=== PATIENT | male | born 1955 | race Caucasian/White ===

== ENCOUNTER → 2016-12-05 | Outpatient (CLI) | payer MEDICARE ==
[~2016-12-05] MED LIST: ALLEGRA DPS180 MG PO; AMBIEN DPS10 MG PO; AMBIEN DPS5 MG PO; CELEBREX100 MG PO; CEPACOL SORE T1 EACH PO; COLACE-DPS100 MG PO; COMPAZINE10 MG PO; COUMADIN5 MG PO; COUMADIN6 MG PO; DULCOLAX-DPS5 MG PO; DULERA 200/58.8 GM IH; DULERA 200/58.8 GM IN; DUONEB DPS3 ML IH; DURAGESIC1 EAC1 TP; FEOSOL-DPS325 MG PO; FLEXERIL-DPS10 MG PO; FLOMAX DPS0.4 MG PO; LASIX DPS40 MG PO; LASIX20 MG PO; LOVENOX DP60 MG/0.6 SQ; MAG-OX400 MG PO; MICRO-K DPS10 MEQ PO; MIRALAX PACKET17 GM PO; MONTELUKAST SOD10 MG PO; MULTIPLE VITAM1 EACH PO; OXY IR DPS10 MG PO; OXY IR DPS5 MG PO; POLYETHYLENE GL17 GM PO; POTASSIUM99 MG PO; PROSCAR DPS5 MG PO; PROTONIX40 MG PO; PROVENTIL2.5 MG/3 M IH; REGLAN DPS5 MG PO; SENOKOT S1 TAB PO; SPIRIVA18 MCG IH; THERA1 EACH PO; TOPROL XL DPS50 MG PO; TOPROL XL100 MG PO; TYLENOL DPS325 MG PO; ULTRAM DPS50 MG PO; VIBRAMYCIN-DPS100 M2 PO; XANAX DPS0.25 MG PO; ZOFRAN4 MG PO
== END | disposition home or self-care (01) ==
LOC: PTH.S 11:01
DX: Z01.812 Encounter for preprocedural laboratory examination (principal)

== ENCOUNTER 2016-12-20 06:29 | Inpatient (IN) | payer MEDICARE, SELFPAY ==
[~2016-12-20] VITALS: Ht 167.6 cm; Wt 103.0 kg
--- NOTE | ~2016-12-20 | OR ---
ADMIT: 12/20/2016 RM/LOC: 509 [facility] MR#: [id number] [address] [address] JONNATHAN PRADO [address] [place] [address] Operative/Delivery Room Report SEX: M AGE: 61 : 1955 SURGERY DATE: 12/20/2016 SURGEON: Toby Coburn MD ASSISTANTS: 1. James Stahl PA-C. 2. JOHNNY Cho. PREOPERATIVE DIAGNOSIS: Right hip avascular necrosis. POSTOPERATIVE DIAGNOSIS: Right hip avascular necrosis. PROCEDURES: 1. Right anterior total hip arthroplasty. 2. Intra-articular block. ANESTHESIA: Spinal. COMPLICATIONS: None. ESTIMATED BLOOD LOSS: 200 mL. COMPONENTS: 1. A 58-mm Gription [place] cup. 2. 3 acetabular screws. 3. Neutral 36-mm AltrX liner. 4. Hole eliminator. 5. 15-mm standard offset Corail stem. 6. 8.5 x 36 mm ceramic head. DESCRIPTION OF PROCEDURE: The patient was taken to the operating room. The correct hip was identified and marked in the preop holding area. The preoperative leg lengths were documented. The patient received a spinal anesthetic. At that point, the patient had traction boots applied. The patient was placed on the [place] operative table. A perfect fluoroscopic AP pelvis was obtained along with a perfect AP of the operative hip and printed for preoperative templating purposes. At that point, the right hip was prepped and draped in a standard fashion and an anterior approach was performed. An incision was made lateral and inferior to the anterior superior iliac spine extending distally. Dissection was carried through subcutaneous tissue down to the tensor fascia. The fibers of the tensor fascia were identified in oblique fashion. The tensor fascia was then opened up along its muscle fibers. An Allis clamp was placed on the anterior fascial border. The tensor muscle itself was then swept off with blunt dissection and retracted posteriorly. At that point, the rectus was elevated off the anterior hip capsule. The lateral circumflex vessels were identified and cauterized. A Cobra retractor was placed above the superior femoral neck to retract the tensor posteriorly. The rest of the rectus was elevated off the anterior hip capsule and a second retractor was placed around the medial femoral neck. An L-shaped capsulotomy ADMIT: 12/20/2016 RM/LOC: 509 [facility] MR#: [id number] [address] [address] JONNATHAN PRADO [address] [place] [address] Operative/Delivery Room Report SEX: M AGE: 61 : 1955 was performed through the hip capsule down to the intertrochanteric line and extended along the intertrochanteric line to the level of the lesser trochanter. Tag stitches were placed in the medial and lateral border of the hip capsule. We also released the superior hip capsule out of the trochanteric shoulder region. At that point, we placed our Cobra retractors in an intra- articular fashion for improved exposure to complete our capsular releases intra-articularly. A femoral neck cut was then made based on templating using the trochanteric shoulder as a bony landmark. We then externally rotated the hip 20 degrees for improved exposure and removed the femoral head from the acetabulum with no undue difficulty. Once the femoral head was removed, we again completed our capsular release around the inferior femoral neck to the level of lesser trochanter, released the superior capsule off the greater trochanteric shoulder in its entirety. We then placed slight traction on the femur in 20 degrees external rotation and placed a blunt-tip Cobra retractor over the anterior acetabular border. A second blunt Cobra was placed around the posterior acetabular border. All the remaining labrum was excised and an episiotomy performed to the inferior capsule to improve exposure. We cauterized the fovea and removed any remaining tissue in the depth of the acetabulum. We sequentially reamed the acetabulum under direct visualization up to a 57-mm reamer. We elected to use a 58-mm size acetabular component. We put the acetabular component on a curved transport truck driver and placed it within the depths of the acetabulum. At that point we removed all retractors; brought in fluoroscopy; and again obtained a perfect AP of the pelvis followed by a perfect AP of the hip. Under fluoroscopic guidance, we impacted the acetabular component in approximately 45 degrees of inclination and 20 degrees of anteversion. Three acetabular screws were now placed with good purchase and no supplemental screws were required. Any peripheral osteophytes were circumferentially removed around the acetabular component. A hole eliminator was placed in the acetabular component and a neutral 36-mm AltrX liner was impacted within the acetabular component. A partial intra-articular block was performed at this point in time. Once our acetabular preparation was completed, all the acetabular retractors were removed. We then exposed the femur by rotating it into neutral position and taking all traction off the femur. A femoral elevating hook was placed posterior to the trochanteric ridge. The foot was dropped down to 45 degrees and the leg maximally externally rotated no undue tension. We made sure our inferior capsular release was complete and placed a #1 retractor over the tip of the trochanter. Any remaining capsule was released off the tip of the trochanter and the piriformis tendon and a conjoined tendon were also released for exposure. At that point, you could feel the femur give, and we were able to elevate it up and out of the wound. The femur was externally rotated to approximately 120 degrees and the foot dropped to the floor as the leg was adducted. The trochanteric elevating hook was manually pulled in the anterior lateral direction as the elevating bar was raised to support it. At that point, we had excellent femoral exposure. A Daysi retractor was placed over the tip of the trochanter and a femoral neck retractor around the medial calcar region to improve exposure. The proximal femur was opened with a box osteotome and a canal finder was used to identify the femoral canal. The proximal femur was ADMIT: 12/20/2016 RM/LOC: 509 [facility] MR#: [id number] [address] [address] JONNATHAN PRADO [address] [place] [address] Operative/Delivery Room Report SEX: M AGE: 61 : 1955 sequentially broached up to a 15 mm Corail broach. We did overream the distal canal to be sure we did not have a distal femoral fit. At that point, we left the broach in the canal and calcar planed the neck. We then reduced the hip with a standard off-set femoral neck and a 8.5 x 36-mm head. All the retractors and femoral hook were removed. Using manual traction, we were able to reduce the hip into the acetabulum with no undue difficulty. A perfect fluoroscopic AP of the pelvis followed by a perfect AP of the hip was obtained and appropriate leg length and offset were confirmed. We replaced our femoral elevating hook posterior to the trochanter. A bone hook and manual traction were used to dislocate the hip, again externally rotating the femur in its entirety as the foot was dropped to the floor and leg adducted. We removed the trial components, replaced a Daysi retractor, and a femoral neck retractor. The broach was removed and the appropriate real components opened. We then impacted a size 15-mm standard offset Corail stem down the femoral canal with excellent press-fit. We impacted a +5 x 36 mm metal/ceramic head on the trunnion. All retractors were removed, using manual traction the hip was reduced, and again was found to be stable. A final fluoroscopic AP pelvis and AP hip was obtained to confirm appropriate leg length, offset, and component positioning. We then irrigated out the wounds thoroughly and repaired the anterior capsular structures with #5 Ti-Cron. Our intra-articular block was completed including all soft tissues. The tensor fascia was repaired with a running and interrupted 0 Vicryl suture. We closed subQ with 2-0 Vicryl and ran a subcuticular Monocryl stitch. A Prineo hip wound dressing was applied and sterile dressings applied. The patient was taken off the HANA table, transferred to a standard OR bed, and taken to the recovery room in stable condition with no complications. Toby Coburn MD/ efrain JOB #: [id number] CC: Toby Coburn, Attending Physician Doroteo Quintanilla, Family Physician
[2016-12-25] MEDS ORDERED: ALLEGRA DPS180 MG PO (13:58)
[2016-12-25] MEDS ORDERED: LASIX DPS40 MG PO (13:59)
[2016-12-25] MEDS ORDERED: CELEBREX100 MG PO (13:59)
[2016-12-25] MEDS ORDERED: AMBIEN DPS10 MG PO (13:59)
[2016-12-25] MEDS ORDERED: MICRO-K DPS10 MEQ PO (13:59)
[2016-12-25] MEDS ORDERED: COUMADIN6 MG PO (13:59)
[2016-12-25] MEDS ORDERED: POLYETHYLENE GL17 GM PO (14:00)
[2016-12-25] MEDS ORDERED: PROSCAR DPS5 MG PO (14:00)
[2016-12-25] MEDS ORDERED: REGLAN DPS5 MG PO (14:00)
[2016-12-25] MEDS ORDERED: PROTONIX40 MG PO (14:00)
[2016-12-25] MEDS ORDERED: MULTIPLE VITAM1 EACH PO (14:01)
[2016-12-25] MEDS ORDERED: MONTELUKAST SOD10 MG PO (14:01)
[2016-12-25] MEDS ORDERED: SENOKOT S1 TAB PO (14:01)
[2016-12-25] MEDS ORDERED: TOPROL XL DPS50 MG PO (14:01)
[2016-12-25] MEDS ORDERED: TYLENOL DPS325 MG PO (14:02)
[2016-12-25] MEDS ORDERED: ULTRAM DPS50 MG PO (14:02)
[2016-12-25] MEDS ORDERED: DULERA 200/58.8 GM IH (14:02)
[2016-12-25] MEDS ORDERED: SPIRIVA18 MCG IH (14:03)
[2016-12-25] MEDS ORDERED: PROVENTIL2.5 MG/3 M IH ×2 (14:03→14:05)
[2016-12-25] MEDS ORDERED: COMPAZINE10 MG PO (14:04)
[2016-12-25] MEDS ORDERED: CEPACOL SORE T1 EACH PO (14:04)
[2016-12-25] MEDS ORDERED: DULCOLAX-DPS5 MG PO (14:04)
[2016-12-25] MEDS ORDERED: COLACE-DPS100 MG PO (14:04)
[2016-12-25] MEDS ORDERED: OXY IR DPS5 MG PO (14:05)
[2016-12-25] MEDS ORDERED: XANAX DPS0.25 MG PO (14:05)
[2016-12-25] MEDS ORDERED: ZOFRAN4 MG PO (14:05)
[2016-12-25] MEDS ORDERED: LOVENOX DP60 MG/0.6 SQ (14:06)
--- NOTE | 2017-01-09 07:51 | CO ---
ADMIT: 12/20/2016 RM/LOC: [facility] MR#: [id number] [address] [address] JIMMY PRADO [address] [place] [address] Consultation Report SEX: M AGE: 61 : 1955 DATE OF CONSULTATION: 12/07/2016 ATTENDING PHYSICIAN: Toby Coburn CONSULTING PHYSICIAN: Doroteo Quintanilla MD SCHEDULED PROCEDURES: Right total hip arthroplasty with Dr. Zapata for failed conservative management of avascular necrosis of the right femur. HISTORY OF PRESENT ILLNESS: Jimmy is a 61-year-old white male, who is seen for preoperative clearance prior to undergoing scheduled right total hip arthroplasty on December 20. He has a complex medical history and has failed conservative management prior to a scheduled total hip replacement. PAST MEDICAL HISTORY: Multiple surgeries including two right and one left rotator cuff repair, open reduction and internal fixation of a leg fracture, hernia surgery, carpal tunnel surgeries, bilateral thumb tendon transfers, and nose surgery. Illnesses include COPD, atrial fibrillation, benign prostatic hypertrophy, prior colitis, colon polyps, venous insufficiency, and sleep apnea. MEDICATIONS: On admission are listed and include: 1. Nabumetone 750 mg b.i.d., on hold. 2. Coumadin 6 mg daily. 3. Metoprolol Extended Release 100 mg daily. 4. Omeprazole 20 mg daily. 5. Multivitamin. 6. Finasteride 5 mg at bedtime. 7. Lasix 40 mg in the morning. 8. Potassium 10 mEq t.i.d. 9. ProAir two puffs q.i.d. 10.Symbicort 160/4.5, one inhalation b.i.d. 11.Tudorza one inhalation daily. 12.Albuterol nebulizers q.i.d. p.r.n. 13.Ambien CR 12.5 mg at bedtime. 14.Docusate 100 mg daily p.r.n. constipation. 15.P.R.N. Lortab. 16.Fexofenadine 180 mg daily. 17.Montelukast 10 mg daily. 18.Reglan 5 mg before meals and at bedtime. 19.Alprazolam 0.25 mg t.i.d. p.r.n. anxiety. ALLERGIES: NONE. SOCIAL HISTORY: Is that of a 61-year-old white male. He is a prior smoker and has end-stage COPD. He is a biker and drinks alcohol routinely. FAMILY HISTORY: Noncontributory. No family history of anesthesia complications noted. ADMIT: 12/20/2016 RM/LOC: [facility] MR#: [id number] [address] [place], [place] [id number] JIMMY PRADO [address] [place] [address] Consultation Report SEX: M AGE: 61 : 1955 REVIEW OF SYSTEMS: Remarkable for his end-stage COPD, atrial fibrillation, diffuse generalized arthritis including his hands, wrists, neck, back, knees, and hips. Additionally, recently had a recent pelvis fracture. Remainder of review of systems is negative. PHYSICAL EXAMINATION: VITAL SIGNS: Blood pressure currently of 128/84, pulse 96, temperature 97.5. Height 68 inches, weight of 223 pounds with a sat of 95% on room air. GENERAL APPEARANCE: Is that of a 61-year-old male who is alert, oriented, appears older than stated age. HEENT: Pupils are reactive. Extraocular muscles are intact. Membranes are moist. NECK: Without nodes or masses. HEART: Regular with controlled rate. LUNGS: Clear with diminished breath sounds. ABDOMEN: Obese, soft, nontender, benign. and RECTAL: Deferred. EXTREMITIES: Reveal venous insufficiency with 1+ edema. No clubbing or cyanosis. NEUROLOGIC: Exam is grossly normal including light touch, strength, and DTRs. He has advanced arthritis of the right hip with formal range of motion testing not done. LABORATORY DATA: Labs include a sodium of 138, potassium 4.0, BUN of 9, creatinine 0.9 with glucose of 146. White count 6.4, hemoglobin 13.3, platelet count 284,000. Chest x-ray and EKG were done in the last 6 months and not repeated. ASSESSMENT: 1. Avascular necrosis, right hip, with failed conservative therapy. Other problems include: 1. End-stage chronic obstructive pulmonary disease. 2. Atrial fibrillation. 3. Prior colitis. ADMIT: 12/20/2016 RM/LOC: [facility] MR#: [id number] [address] [place], [place] [id number] JIMMY PRADO [address] [place] [address] Consultation Report SEX: M AGE: 61 : 1955 4. Eczema. 5. Ongoing Coumadin therapies. 6. Sleep apnea. 7. Venous insufficiency. PLAN: We will hold his Coumadin 6 days preop. We will use Lovenox 60 mg subcutaneous bridge. We will hold Lovenox the day before surgery and resume Coumadin postop at 6 mg daily. He is okay for operative intervention and anesthesia as indicated. Routine preop instructions were given. We will hold his nabumetone at this time and confirmation of Pulmonary availability in the perioperative period was confirmed through [facility]. Additionally, I recommend he have intrathecal anesthesia, not general, if at all possible. Doroteo Quintanilla MD/ efrain JOB #: [id number] CC: Toby Coburn, Attending Physician Doroteo Quintanilla, Family Physician
[2017-01-10] MEDS ORDERED: FEOSOL-DPS325 MG PO (18:43)
[2017-01-10] MEDS ORDERED: COUMADIN5 MG PO (18:43)
[2017-01-10] MEDS ORDERED: AMBIEN DPS5 MG PO (18:43)
[2017-01-10] MEDS ORDERED: ALLEGRA DPS180 MG PO (18:43)
[2017-01-10] MEDS ORDERED: COLACE-DPS100 MG PO ×2 (18:43→18:47)
[2017-01-10] MEDS ORDERED: PROSCAR DPS5 MG PO (18:44)
[2017-01-10] MEDS ORDERED: REGLAN DPS5 MG PO (18:44)
[2017-01-10] MEDS ORDERED: MIRALAX PACKET17 GM PO (18:44)
[2017-01-10] MEDS ORDERED: SENOKOT S1 TAB PO (18:44)
[2017-01-10] MEDS ORDERED: FLOMAX DPS0.4 MG PO (18:44)
[2017-01-10] MEDS ORDERED: PROTONIX40 MG PO (18:44)
[2017-01-10] MEDS ORDERED: TOPROL XL100 MG PO (18:45)
[2017-01-10] MEDS ORDERED: THERA1 EACH PO (18:45)
[2017-01-10] MEDS ORDERED: VIBRAMYCIN-DPS100 M2 PO (18:45)
[2017-01-10] MEDS ORDERED: DULERA 200/58.8 GM IN (18:45)
[2017-01-10] MEDS ORDERED: MONTELUKAST SOD10 MG PO (18:45)
[2017-01-10] MEDS ORDERED: DUONEB DPS3 ML IH ×2 (18:46→18:49)
[2017-01-10] MEDS ORDERED: SPIRIVA18 MCG IH (18:46)
[2017-01-10] MEDS ORDERED: DURAGESIC1 EAC1 TP (18:47)
[2017-01-10] MEDS ORDERED: ULTRAM DPS50 MG PO (18:48)
[2017-01-10] MEDS ORDERED: DULCOLAX-DPS5 MG PO (18:48)
[2017-01-10] MEDS ORDERED: FLEXERIL-DPS10 MG PO (18:48)
[2017-01-10] MEDS ORDERED: OXY IR DPS10 MG PO (18:48)
[2017-01-10] MEDS ORDERED: XANAX DPS0.25 MG PO (18:49)
[2017-01-10] MEDS ORDERED: PROVENTIL2.5 MG/3 M IH (18:49)
[2017-01-10] MEDS ORDERED: ZOFRAN4 MG PO (18:49)
--- NOTE | 2017-01-10 21:07 | HP ---
ADMIT: 12/20/2016 RM/LOC: [facility] MR#: [id number] [address] [address] JONNATHAN PRADO [address] [place] [address] Pre-OP History and Physical SEX: M AGE: 61 : 1955 DATE OF SERVICE: CHIEF COMPLAINT: Hip pain. HISTORY OF PRESENT ILLNESS: The patient is a 61-year-old male with long- standing history of right hip pain. He had a diagnosis of right hip avascular necrosis. Dr. Zapata attempted to do core decompression, this has failed. He is not involved in a femoral head collapse. He is now being admitted for right total hip arthroplasty. He does have chronic atrial fibrillation. He is on chronic Coumadin therapy. The patient has been previously exposed to bedbugs. They have had their house treated and it has been cleaned. Presently, has no known active infections. PAST MEDICAL HISTORY: Include atrial fibrillation, some COPD, anxiety, depression, hepatitis C. PAST SURGICAL HISTORY: Include knee arthroscopy, hernia repair, rotator cuff repair, core decompression. MEDICATIONS: Include: 1. Xolair. 2. Coumadin. 3. ProAir. 4. Albuterol. 5. Fexofenadine. 6. Symbicort. 7. Metoprolol. 8. Omeprazole. 9. Finasteride. 10.Nabumetone. 11.Lasix. 12.Ambien. 13.Xanax. 14.Singulair. ALLERGIES: NONE. SOCIAL HISTORY: Denies any tobacco or alcohol use. REVIEW OF SYSTEMS: Negative. PHYSICAL EXAM: GENERAL: Moderately obese male. EXTREMITIES: Pain with any motion of his right hip. We can internally rotate to 0, externally rotate to 35, flex to 100 reproduces symptoms. Legs otherwise neurovascularly intact. ADMIT: 12/20/2016 RM/LOC: [facility] MR#: [id number] [address] [address] JONNATHAN PRADO [address] [place] [address] Pre-OP History and Physical SEX: M AGE: 61 : 1955 DIAGNOSTIC DATA: X-rays AP, lateral show a right hip avascular necrosis with the collapse of the femoral head. No other abnormalities. IMPRESSION: 1. Right hip avascular necrosis, stage IV. 2. Chronic Coumadin therapy. 3. History of hepatitis C. PLAN: Talked about different options, failed conservative care. Plan on doing a right anterior total hip arthroplasty. He is aware of the risks, benefits, and options and agreed to proceed. He has been seen and cleared from a medical standpoint. His Coumadin has been held. Toby Coburn MD/ efrain JOB #: [id number] CC: Toby Coburn, Attending Physician Doroteo Quintanilla, Family Physician
--- NOTE | 2017-01-10 21:11 | DS ---
ADMIT: 12/20/2016 RM/LOC: 509 [facility] MR#: [id number] [address] [address] [place] [address] General Discharge Summary SEX: M AGE: 61 : 1955 ADMISSION DATE: 12/20/2016 DISCHARGE DATE: 12/23/2016 REASON FOR ADMISSION: Right total hip arthroplasty due to end-stage right hip avascular necrosis. PREOPERATIVE DIAGNOSIS: Right hip avascular necrosis. POSTOPERATIVE DIAGNOSIS: Right hip avascular necrosis. PROCEDURE PERFORMED: Right anterior total hip arthroplasty. ANESTHETIC: Spinal. COMPLICATIONS: None. BLOOD LOSS: 200 mL. SURGEON: Toby Coburn MD. FLIGHT CONTROLS ENGINEER: James Stahl PA-C and JOHNNY Cho. ACTIVE MEDICAL PROBLEMS: Severe degenerative joint disease of the right hip secondary to avascular necrosis, end-stage COPD, chronic atrial fibrillation, prior colitis, eczema, ongoing Coumadin therapy, sleep apnea, and venous insufficiency. HOSPITAL COURSE: Jimmy was admitted on 12/20/2016 for elective right total hip arthroplasty secondary to severe degenerative joint disease and avascular necrosis of the hip. His total hip arthroplasty completed successfully from a direct anterior approach by Dr. Coburn. There were no intraoperative complications. Postoperatively, he had some pain and soreness. We did use intraoperative generic pain cocktail, did not have great results, but it was adequate to control his pain within a reasonable fashion. Participated well with therapy progressing with his home exercise program and DVT prophylaxis with bridging with Lovenox on to warfarin until his INR was therapeutic. Gradually progressed until day 3 when he was stable and ready for discharge. He did have mild acute surgical blood-loss anemia, hemoglobin dropped to 10.9, but remained hemodynamically stable, did not require transfusion. Postop day 3, he was stable and ready for discharge to longterm facility for rehabilitation. DISCHARGE MEDICATIONS: 1. Jewels 180 mg daily. 2. Ambien 10 mg at bedtime. 3. Celebrex 200 mg b.i.d. 4. Coumadin as directed to maintain therapeutic INR of 2.0 to 3.0. 5. Lasix 40 mg daily. 6. Micro-K 10 mEq daily. ADMIT: 12/20/2016 RM/LOC: 509 [facility] MR#: [id number] [address] [address] [place] [address] General Discharge Summary SEX: M AGE: 61 : 1955 7. MiraLAX p.r.n. 8. Proscar 5 mg daily. 9. Protonix 40 mg daily. 10.Reglan 5 mg p.r.n. 11.Senokot b.i.d. p.r.n. 12.Singulair 10 mg daily. 13.Multivitamin daily. 14.Toprol-XL 100 mg daily. 15.Tylenol 650 mg q.4 p.r.n. 16.Ultram 50 mg 1 to 2 q.6 p.r.n. 17.Dulera 200/5, 0.8 b.i.d. 18.Proventil HFA q.i.d. p.r.n. 19.Spiriva 18 mcg daily. 20.Cepacol p.r.n. 21.Colace 100 mg b.i.d. p.r.n. 22.Compazine 10 mg q.6 p.r.n. 23.Dulcolax p.r.n. 24.Flexeril 10 mg t.i.d. p.r.n. 25.OxyIR 5 mg 1 to 2 q.4 p.r.n. 26.Xanax 0.25 mg t.i.d. p.r.n. 27.Zofran 4 mg q.4 p.r.n. 28.Lovenox 60 mg subcu daily until therapeutic with his INR. DISCHARGE INSTRUCTIONS: Jimmy will undergo therapy per anterior total hip arthroplasty protocol, follow in the orthopedic office in 2 weeks for wound check, 6 weeks with x-rays. Follow up with primary care as directed. James Stahl PA-C / Toby Coburn MD / efrain JOB #: [id number] CC: Toby Coburn MD, Attending Physician Doroteo Quintanilla MD, Family Physician
[2017-01-23] MEDS ORDERED: POTASSIUM99 MG PO (06:12)
[2017-01-23] MEDS ORDERED: MAG-OX400 MG PO (06:12)
[2017-01-23] MEDS ORDERED: TYLENOL DPS325 MG PO (06:12)
[2017-01-23] MEDS ORDERED: LASIX20 MG PO (06:13)
== END 2016-12-23 11:30 | DRG 470 ==
LOC: 5MS 07:34 → WOR 07:34 → 5MS 13:33
PROVIDERS: ADMIT Orthopaedic Surgery
PROC: 0SR904A Replacement of Right Hip Joint with Ceramic on Polyethylene Synthetic Substitute, Uncemented, Open Approach (ICD-10-PCS; principal; 2016-12-20)
DX: M87.051 Idiopathic aseptic necrosis of right femur (principal); E66.9 Obesity, unspecified; D62 Acute posthemorrhagic anemia; F32.9 Major depressive disorder, single episode, unspecified; I48.2 Chronic atrial fibrillation; J44.9 Chronic obstructive pulmonary disease, unspecified; F41.9 Anxiety disorder, unspecified; B19.20 Unspecified viral hepatitis C without hepatic coma; M72.2 Plantar fascial fibromatosis; J45.909 Unspecified asthma, uncomplicated; N40.0 Benign prostatic hyperplasia without lower urinary tract symptoms; I87.2 Venous insufficiency (chronic) (peripheral); G47.30 Sleep apnea, unspecified; M15.9 Polyosteoarthritis, unspecified; L30.9 Dermatitis, unspecified; Z79.01 Long term (current) use of anticoagulants; Z87.891 Personal history of nicotine dependence; Z68.35 Body mass index [BMI] 35.0-35.9, adult

== ENCOUNTER 2016-12-26 21:44 | Emergency (ER) | payer MEDICARE ==
[~2016-12-26 21:44] MED LIST changes: -AMBIEN DPS5 MG PO; -COUMADIN5 MG PO; -DULERA 200/58.8 GM IN; -DUONEB DPS3 ML IH; -DURAGESIC1 EAC1 TP; -FEOSOL-DPS325 MG PO; -FLEXERIL-DPS10 MG PO; -FLOMAX DPS0.4 MG PO; -LASIX20 MG PO; -MAG-OX400 MG PO; -MIRALAX PACKET17 GM PO; -OXY IR DPS10 MG PO; -POTASSIUM99 MG PO; -THERA1 EACH PO; -TOPROL XL100 MG PO; -VIBRAMYCIN-DPS100 M2 PO
--- NOTE | 2016-12-31 08:46 | ER ---
ADMIT: 12/26/2016 RM/LOC: ER [facility] MR#: [id number] [address] [address] [place] [address] Emergency Room Report SEX: M AGE: 61 : 1955 DATE: 12/26/2016 A 61-year-old, who is 6 days postop with right total hip, comes in with erythema surrounding the wound site. USP was concerned that the redness was spreading. See T-sheet for remainder of history and physical. I did not see any drainage. There is approximately 20 cm area of light erythema. No drainage is noted. A CBC is significant for a hemoglobin 9.9. I discussed the care with Dr. Hanley, who said no antibiotics tonight and that he should be seen by Dr. Coburn tomorrow in the office. He is being discharged with diagnosis of cellulitis and instructed to follow up with Dr. Coburn tomorrow. Adrian Brown MD/ efrain JOB #: [id number] CC: Jersey Richardson MD, Attending Physician Doroteo Quintanilla MD, Family Physician
[2017-01-10] MEDS ORDERED: COLACE-DPS100 MG PO ×2 (18:43→18:47)
[2017-01-10] MEDS ORDERED: AMBIEN DPS5 MG PO (18:43)
[2017-01-10] MEDS ORDERED: COUMADIN5 MG PO (18:43)
[2017-01-10] MEDS ORDERED: ALLEGRA DPS180 MG PO (18:43)
[2017-01-10] MEDS ORDERED: FEOSOL-DPS325 MG PO (18:43)
[2017-01-10] MEDS ORDERED: REGLAN DPS5 MG PO (18:44)
[2017-01-10] MEDS ORDERED: PROSCAR DPS5 MG PO (18:44)
[2017-01-10] MEDS ORDERED: PROTONIX40 MG PO (18:44)
[2017-01-10] MEDS ORDERED: FLOMAX DPS0.4 MG PO (18:44)
[2017-01-10] MEDS ORDERED: MIRALAX PACKET17 GM PO (18:44)
[2017-01-10] MEDS ORDERED: SENOKOT S1 TAB PO (18:44)
[2017-01-10] MEDS ORDERED: TOPROL XL100 MG PO (18:45)
[2017-01-10] MEDS ORDERED: MONTELUKAST SOD10 MG PO (18:45)
[2017-01-10] MEDS ORDERED: THERA1 EACH PO (18:45)
[2017-01-10] MEDS ORDERED: DULERA 200/58.8 GM IN (18:45)
[2017-01-10] MEDS ORDERED: VIBRAMYCIN-DPS100 M2 PO (18:45)
[2017-01-10] MEDS ORDERED: SPIRIVA18 MCG IH (18:46)
[2017-01-10] MEDS ORDERED: DUONEB DPS3 ML IH ×2 (18:46→18:49)
[2017-01-10] MEDS ORDERED: DURAGESIC1 EAC1 TP (18:47)
[2017-01-10] MEDS ORDERED: OXY IR DPS10 MG PO (18:48)
[2017-01-10] MEDS ORDERED: FLEXERIL-DPS10 MG PO (18:48)
[2017-01-10] MEDS ORDERED: DULCOLAX-DPS5 MG PO (18:48)
[2017-01-10] MEDS ORDERED: ULTRAM DPS50 MG PO (18:48)
[2017-01-10] MEDS ORDERED: XANAX DPS0.25 MG PO (18:49)
[2017-01-10] MEDS ORDERED: ZOFRAN4 MG PO (18:49)
[2017-01-10] MEDS ORDERED: PROVENTIL2.5 MG/3 M IH (18:49)
[2017-01-23] MEDS ORDERED: POTASSIUM99 MG PO (06:12)
[2017-01-23] MEDS ORDERED: MAG-OX400 MG PO (06:12)
[2017-01-23] MEDS ORDERED: TYLENOL DPS325 MG PO (06:12)
[2017-01-23] MEDS ORDERED: LASIX20 MG PO (06:13)
== END 2016-12-27 01:30 | disposition home or self-care (01) ==
LOC: ER 21:44
DX: T81.4XXA Infection following a procedure, initial encounter (principal); L03.115 Cellulitis of right lower limb; J44.9 Chronic obstructive pulmonary disease, unspecified; F41.9 Anxiety disorder, unspecified; I10 Essential (primary) hypertension; I48.91 Unspecified atrial fibrillation; Z79.899 Other long term (current) drug therapy; Z79.01 Long term (current) use of anticoagulants; Z79.51 Long term (current) use of inhaled steroids

== ENCOUNTER → 2016-12-27 | Outpatient (CLI) | payer MEDICARE ==
[~2016-12-27] MED LIST changes: +AMBIEN DPS5 MG PO; +COUMADIN5 MG PO; +DULERA 200/58.8 GM IN; +DUONEB DPS3 ML IH; +DURAGESIC1 EAC1 TP; +FEOSOL-DPS325 MG PO; +FLEXERIL-DPS10 MG PO; +FLOMAX DPS0.4 MG PO; +LASIX20 MG PO; +MAG-OX400 MG PO; +MIRALAX PACKET17 GM PO; +OXY IR DPS10 MG PO; +POTASSIUM99 MG PO; +THERA1 EACH PO; +TOPROL XL100 MG PO; +VIBRAMYCIN-DPS100 M2 PO
== END | disposition home or self-care (01) ==
LOC: RAD.S 13:30
DX: M79.604 Pain in right leg (principal); M79.89 Other specified soft tissue disorders; I82.401 Acute embolism and thrombosis of unspecified deep veins of right lower extremity

== ENCOUNTER 2016-12-29 10:58 | Emergency (ER) | payer MEDICARE ==
[~2016-12-29 10:58] MED LIST changes: -AMBIEN DPS5 MG PO; -COUMADIN5 MG PO; -DULERA 200/58.8 GM IN; -DUONEB DPS3 ML IH; -DURAGESIC1 EAC1 TP; -FEOSOL-DPS325 MG PO; -FLEXERIL-DPS10 MG PO; -FLOMAX DPS0.4 MG PO; -LASIX20 MG PO; -MAG-OX400 MG PO; -MIRALAX PACKET17 GM PO; -OXY IR DPS10 MG PO; -POTASSIUM99 MG PO; -THERA1 EACH PO; -TOPROL XL100 MG PO; -VIBRAMYCIN-DPS100 M2 PO
--- NOTE | 2017-01-06 08:54 | ER ---
ADMIT: 12/29/2016 RM/LOC: ER [facility] MR#: [id number] [address] [address] [place] [address] Emergency Room Report SEX: M AGE: 61 : 1955 DATE: 12/29/2016 TIME: 1058 hours. Please refer to my T-sheet for complete H and P. Briefly, the patient is a 61- year-old who was sent over here with legs swollen, not himself, he said slightly confused. He said it has been worse today. He has a longstanding history of COPD, dependent stasis and edema in his legs, recent right hip surgery. He has been on clindamycin for last couple days. PHYSICAL EXAMINATION: VITAL SIGNS: Blood pressure 129/94, pulse 81, respirations 16, temp 96.1, sat 96%. GENERAL: He is in no acute distress. HEENT: Grossly Normal. LUNGS: Slightly coarse. HEART: Regular. ABDOMEN: Soft. EXTREMITIES: He has 2 to 3+ edema and his right leg is more swollen. It is erythematous from the knee down. It is slightly warm. EMERGENCY DEPARTMENT COURSE: CBC came back normal except hemoglobin 10.5. Chemistries normal except sodium 128, glucose 107, magnesium 1.7. INR is 3.58. CK is 445 and CK-MB 8.6, troponin was negative. EKG was AFib, rate 83, no changes. Lactate is 0.9. BNP was 2650. Chest x-ray revealed no acute disease. The patient was given Ativan 0.5 IV, it seemed to help. He received DuoNeb, Lasix 40 IV after discussing with Dr. Quintanilla. Dr. Quintanilla will follow him up in the clinic tomorrow, would like him transferred back to the senior living. The patient is okay with this. ASSESSMENT: 1. Hyponatremia. 2. Congestive heart failure. 3. Dependent stasis. 4. Recent hip fracture. PLAN: We are going to increase his Lasix from 40 to 80 a day. He is going to see Dr. Quintanilla tomorrow morning. Return here if problems are worse. Continue care. Bassem Jeff MD/ efrain JOB #: [id number] CC: Bassem Jeff MD, Attending Physician Doroteo Quintanilla MD, Family Physician
[2017-01-10] MEDS ORDERED: ALLEGRA DPS180 MG PO (18:43)
[2017-01-10] MEDS ORDERED: COLACE-DPS100 MG PO ×2 (18:43→18:47)
[2017-01-10] MEDS ORDERED: AMBIEN DPS5 MG PO (18:43)
[2017-01-10] MEDS ORDERED: FEOSOL-DPS325 MG PO (18:43)
[2017-01-10] MEDS ORDERED: COUMADIN5 MG PO (18:43)
[2017-01-10] MEDS ORDERED: REGLAN DPS5 MG PO (18:44)
[2017-01-10] MEDS ORDERED: SENOKOT S1 TAB PO (18:44)
[2017-01-10] MEDS ORDERED: PROTONIX40 MG PO (18:44)
[2017-01-10] MEDS ORDERED: PROSCAR DPS5 MG PO (18:44)
[2017-01-10] MEDS ORDERED: MIRALAX PACKET17 GM PO (18:44)
[2017-01-10] MEDS ORDERED: FLOMAX DPS0.4 MG PO (18:44)
[2017-01-10] MEDS ORDERED: THERA1 EACH PO (18:45)
[2017-01-10] MEDS ORDERED: DULERA 200/58.8 GM IN (18:45)
[2017-01-10] MEDS ORDERED: TOPROL XL100 MG PO (18:45)
[2017-01-10] MEDS ORDERED: MONTELUKAST SOD10 MG PO (18:45)
[2017-01-10] MEDS ORDERED: VIBRAMYCIN-DPS100 M2 PO (18:45)
[2017-01-10] MEDS ORDERED: SPIRIVA18 MCG IH (18:46)
[2017-01-10] MEDS ORDERED: DUONEB DPS3 ML IH ×2 (18:46→18:49)
[2017-01-10] MEDS ORDERED: DURAGESIC1 EAC1 TP (18:47)
[2017-01-10] MEDS ORDERED: ULTRAM DPS50 MG PO (18:48)
[2017-01-10] MEDS ORDERED: DULCOLAX-DPS5 MG PO (18:48)
[2017-01-10] MEDS ORDERED: OXY IR DPS10 MG PO (18:48)
[2017-01-10] MEDS ORDERED: FLEXERIL-DPS10 MG PO (18:48)
[2017-01-10] MEDS ORDERED: XANAX DPS0.25 MG PO (18:49)
[2017-01-10] MEDS ORDERED: ZOFRAN4 MG PO (18:49)
[2017-01-10] MEDS ORDERED: PROVENTIL2.5 MG/3 M IH (18:49)
[2017-01-23] MEDS ORDERED: POTASSIUM99 MG PO (06:12)
[2017-01-23] MEDS ORDERED: MAG-OX400 MG PO (06:12)
[2017-01-23] MEDS ORDERED: TYLENOL DPS325 MG PO (06:12)
[2017-01-23] MEDS ORDERED: LASIX20 MG PO (06:13)
== END 2016-12-29 13:18 | disposition home or self-care (01) ==
LOC: ER 10:58
DX: E87.1 Hypo-osmolality and hyponatremia (principal); I50.9 Heart failure, unspecified; I48.91 Unspecified atrial fibrillation; I73.9 Peripheral vascular disease, unspecified

== ENCOUNTER 2017-01-01 05:01 | Inpatient (IN) | payer MEDICARE, SELFPAY ==
[~2017-01-01] VITALS: Ht 167.6 cm; Wt 114.4 kg
--- NOTE | 2017-01-01 19:14 | ER ---
ADMIT: 01/01/2017 RM/LOC: 529 [facility] MR#: [id number] [address] [address] [place] [address] Emergency Room Report SEX: M AGE: 61 : 1955 DATE: 01/01/2017 CHIEF COMPLAINT: Leg pain and swelling. HISTORY OF PRESENT ILLNESS: The patient is a 61-year-old male, status post recent right total hip arthroplasty, hospitalized December 20 through , evaluated here on the night with negative venous ultrasound of right lower extremity. Transferred tonight with increasing pain, swelling, particularly in his left upper extremity. Denies any chest pain, hemoptysis, shortness of breath, or syncope. PAST MEDICAL HISTORY: ILLNESSES: Atrial fib, chronically anticoagulated; AVN of right hip; anxiety; depression; COPD; hepatitis C virus; benign prostatic hypertrophy; venous insufficiency; obstructive sleep apnea, on CPAP. OPERATIONS: Knee arthroscopies, status post bilateral thumb tendon transfers; multiple rotator cuff repairs bilaterally; inguinal hernia repair; AVN; core decompression; nasal surgery; and recent right total hip arthroplasty. ALLERGIES: NONE. MEDICATIONS: Please see nurse's MAR. SOCIAL HISTORY: Nonsmoker, nondrinker, no illicit drugs. FAMILY HISTORY: Negative for coagulopathy. REVIEW OF SYSTEMS: A 12-point review of systems negative for all other systems, illnesses, or operations except as outlined above. PHYSICAL EXAMINATION: VITAL SIGNS: Temp 98.8, pulse 86, respirations 16, BP 113/75, SaO2 of 99% on room air. GENERAL: Anxious, non-diaphoretic, without jaundice or icterus. HEENT: Normocephalic. No evidence of epistaxis, rhinorrhea, or otorrhea. NECK: Supple without lymphadenopathy or thyromegaly. CHEST: Clear. Breath sounds equal, diminished without rales, rhonchi, or wheeze. HEART: Regular rate, irregular rhythm without murmur, gallop, or edema. ABDOMEN: Soft, obese, nontender, nondistended without mass or megaly. Bowel sounds hypoactive. EXTREMITIES: Bilateral venous stasis disease with erythema and redness, right greater than left lower extremity. Marked ecchymosis, swelling, mild tenderness in left upper extremity. NEURO: EOMI. PERRLA. No evidence of drift, dysarthria, or ataxia. Gait not assessed. MENTAL STATUS: Alert, oriented, and cooperative without delusions, hallucinations, or abnormal thought content. MEDICAL DECISION MAKING: Venous Doppler of lower extremity shows nonocclusive ADMIT: 01/01/2017 RM/LOC: 529 [facility] MR#: [id number] [address] [facility] [place] [address] Emergency Room Report SEX: M AGE: 61 : 1955 clot in right femoral vein, new since the night. Negative on the left. Negative left upper extremity. WBC 10.5; hemoglobin 8.7, down almost 2 g in three days; platelet 506; lactic 1.0; CRP 7.36. Sodium 128, potassium 3.6, troponin less than 0.015, INR 5.67, BNP 2097, lipase 147. Discussed findings with Dr. Matty Quintanilla and Dr. Ch. Dr. Ch gave orders to nursing staff. DIAGNOSES: 1. Nonocclusive right femoral vein deep vein thrombosis in an anticoagulated individual. 2. Supratherapeutic INR. 3. Normocytic normochromic anemia, suspect blood loss in left upper extremity. 4. Recent right total hip arthroplasty. RECOMMENDATION: Admit inpatient Med/Surg for Dr. Doroteo Quintanilla. ADMISSION/DISCHARGE CONDITION: Stable. CODE STATUS: The patient is a full code. Jersey Richardson MD/ efrain JOB #: [id number] CC: Doroteo Quintanilla MD, Attending Physician Doroteo Quintanilla MD, Family Physician Doroteo Quintanilla MD
--- NOTE | 2017-01-05 11:55 | CO ---
ADMIT: 01/01/2017 RM/LOC: 529 [facility] MR#: [id number] [id number] [address] JONN[place]AN PRADO [place], [place] [address] Consultation SEX: M AGE: 61 : 1955 DATE OF CONSULTATION: 01/04/2017 ATTENDING PHYSICIAN: Doroteo Quintanilla CONSULTING PHYSICIAN: Jamison Beckwith MD REASON FOR CONSULTATION: Acute kidney injury. HISTORY OF PRESENT ILLNESS: The patient is a 61-year-old gentleman, who was admitted to the hospital three days ago with a chief complaint of right lower extremity DVT and pain in his right leg. He had recent right hip arthroplasty for AVN and was recovering at [facility]. Upon admission, his creatinine was 1.1 that had improved to 0.9 recently. He has been anticoagulated previously for his atrial fibrillation and now for his DVT. During this hospitalization, he has been noted to have increasingly worse left upper extremity swelling. He has some sensation in his fingers and denies any pain in that arm. However, his hemoglobin has dropped from 10.8 to 6.9 over the last 48 hours. His creatinine has risen from 0.9 to 2.0, and it was 1.6 yesterday during this duration of time. At time of this encounter, his breathing is fair. He denies any chest pain, nausea, or vomiting. Appetite is not too good. He reports that he has been having obstructive urinary symptoms with urinary frequency and his urine stream has been extremely poor. He has a history of a benign prostatic hypertrophy in the past. He denies any NSAIDs or [id number] medications or herbal supplements. He feels very weak. REVIEW OF SYSTEMS: Complete review of systems otherwise negative in detail except as mentioned in history of present illness above. PAST MEDICAL HISTORY: 1. COPD. 2. Atrial fibrillation. 3. BPH. 4. Obstructive sleep apnea. 5. Venous insufficiency. 6. Colonic polyps. 7. Avascular necrosis of right femur, status post arthroplasty. 8. Rotator cuff tears. 9. Carpal tunnel release. 10.Hernia repair. ALLERGIES: LORTAB. MEDICATIONS: Reviewed in the chart. SOCIAL HISTORY: Former smoker. He quit smoking 8 years ago. He does drink alcohol, but tries to limit himself to less than three drinks a day. He lives at [facility] currently for his surgery. He used to work, but is now ADMIT: 01/01/2017 RM/LOC: 529 [facility] MR#: [id number] [address] [address] [place] [address] Consultation SEX: M AGE: 61 : 1955 disabled. FAMILY HISTORY: No family history of chronic kidney disease or renal replacement therapy. PHYSICAL EXAMINATION: VITAL SIGNS: Temperature 98.5 Fahrenheit, pulse 97, blood pressure 118/72. In's and out's over the last two the last 24 hours has been 2031 in, and 1080 out. GENERAL: He is comfortable. HEENT: Head is nontraumatic and normocephalic. Extraocular movements are intact. Pale conjunctivae. Dry mucosa. CHEST: Clear to auscultation. CVS: Irregular. S1 and S2 heard. No rubs, murmurs, or gallops. ABDOMEN: Soft, nontender. EXTREMITIES: 2 to 3+ bilateral lower extremity edema. His left upper arm is extremely swollen and has 2 to 3+ edema. Edema is in the right upper arm. NEUROLOGIC: Alert, awake, and oriented x3. PSYCHIATRIC: Affect and memory are within normal limits. LABORATORY DATA: Reviewed. BMP with sodium 131, potassium 3.1, CO2 of 27, creatinine 2.0, with a BUN of 15, his calcium is 7.3. Hemoglobin is 6.9, down from 10.8 two days ago. ASSESSMENT AND PLAN: Acute kidney injury-likely ischemic acute tubular necrosis versus obstructive nephropathy. I will check urine studies to evaluate further. I agree with the blood transfusion in order to increase his hemoglobin a little bit. I will obtain a renal ultrasound to evaluate for obstructive nephropathy, and I will also request a Garrett catheter to be placed. I will hold his diuretics for the time being, and we will resume them once he is hemodynamically stable and his hemoglobin is stable as well. Please do not hesitate to contact with any questions. Jamison Beckwith MD/ efrain JOB #: [id number] CC: Doroteo Quintanilla, Attending Physician Doroteo Quintanilla, Family Physician
--- NOTE | 2017-01-08 21:00 | HP ---
ADMIT: 01/01/2017 RM/LOC: 529 [facility] MR#: [id number] [address] [address] [place] [address] History and Physical SEX: M AGE: 61 : 1955 DATE OF SERVICE: CHIEF COMPLAINT: Originally is left arm pain. REASON FOR ADMIT: Anemia, right lower extremity DVT and pain. HISTORY OF PRESENT ILLNESS: The patient presents to the ER for increasing left arm pain and confusion and falls. The patient recently had a right hip arthroplasty for AVN and has been on pain medications, which he says have been making him feel loopy and unstable and he fell against the wall a few days ago and started having left pain at that time. It has become very swollen, red, and painful. He also has continued to have right lower extremity pain, right hip pain, and also swelling in his both lower extremities bilaterally. They also have been warm and erythematous. He says that his COPD has also been worse lately, but thinks that might be related to him not getting his medications on time. He denies any chest pain, no palpitations. No fevers, chills, or dizziness, but again states he has some unstableness or loopiness as he calls it with his pain medications. The patient has been seen recently in the ER and has been currently being treated for cellulitis with clindamycin. He has also had a right lower extremity DVT Doppler on the , which was negative, but again, pain has continued throughout the last few days, so he came back into the ER. PAST MEDICAL HISTORY: Significant for COPD, atrial fibrillation, BPH, sleep apnea, venous insufficiency, history of colon polyps and colitis, and then this most recent avascular necrosis of the right femur. PAST SURGICAL HISTORY: He has had multiple rotator cuff tear repairs bilaterally, arthroplasty of the right hip for the AVN. He has also had a history of an ORIF, a carpal tunnel release, hernia repair, and bilateral tendon transposition of his thumbs. ALLERGIES: HE SAYS HE IS ALLERGIC TO LORTAB ONLY. HE CAN TAKE HYDROCODONE, BUT THE LORTAB MAKES HIM THROW UP. MEDICATIONS: See list. SOCIAL HISTORY: He is a former smoker. Does drink alcohol routinely and is currently residing at [facility] for rehab after his surgery. FAMILY HISTORY: Noncontributory. REVIEW OF SYSTEMS: No fever, no chills, no lightheadedness, but does state he is unstable and taking pain medications. HEENT: No headache. No sore throat or upper respiratory infections. No double vision. HEART: Positive for atrial fibrillation, but he has no chest pain and has not noticed any palpitations. LUNGS: He has COPD. Feels he has been more wheezy lately and has had an ADMIT: 01/01/2017 RM/LOC: 529 [facility] MR#: [id number] [address] [place] [id number] [place] [address] History and Physical SEX: M AGE: 61 : 1955 increased shortness of breath. ABDOMEN: No diarrhea. No constipation, nausea, or vomiting. He has not noticed any dark, black stools, or any blood in his stools. He has also not coughed up any blood. EXTREMITIES: He has a recent right hip arthroplasty with pain in that right hip area. He also has redness and swelling bilaterally in his lower extremities and they are painful with moving. He also has pain in his left upper extremity, which is also erythematous and warm to touch and also has multiple bruising. SKIN: Positive for he is being currently treated for the cellulitis, and again, he mentions erythema and the bruising. ER WORKUP: Blood cultures are pending. However of note, blood cultures from the were negative 5 days and blood cultures from 12/29 were also negative. CBC showed a white blood cell count 10.5, hemoglobin of 8.7, and platelets are 506. PT was 62.2, INR was 5.67. Sodium is low at 128, potassium low at 3.6, chloride is 90, CO2 of 29, BUN 14, creatinine 1, glucose 94, calcium 9, AST 50, ALT of 45, and lipase 147. Troponin was less than 0.015. BNP was 2097. CRP was elevated at 7.36. Lactic acid was normal at 1. Bilateral ultrasound Doppler showed positive for right DVT. Left extremity was negative. Left arm Doppler also showed negative for DVT. His hemoglobin dropped from 8.7, and it was 10.5 on 12/29/2016. PHYSICAL EXAMINATION: VITAL SIGNS: At time of coming to the floor; temperature 99 degrees Fahrenheit, pulse is 82, respirations 16, blood pressure is 120/81, he has been saturating 94% on room air. GENERAL: No acute distress. He is alert and oriented x3. He does have some moderate pain with movement of his right hip and his left upper extremity. HEENT: Normocephalic and atraumatic. Moist mucous membranes. Extraocular muscles are intact. HEART: Irregularly irregular rhythm. No murmur. LUNGS: Wheezy bilaterally. I did not appreciate any rhonchi at this time. ABDOMEN: Soft. Positive bowel sounds. Nontender. NEURO: Cranial nerves II through XII are intact. MUSCULOSKELETAL: Left upper extremity is swollen from his hand up to his shoulder. It is very erythematous, also has multiple bruising and is warm to touch, tender to palpation as well. Lower extremities bilaterally are both erythematous and warm to touch. He has 3+ swelling in his lower extremities bilaterally. He has right hip bandage where he had his right arthroplasty. ASSESSMENT AND PLAN: This is a 61-year-old male, who just recently had a right hip arthroplasty for avascular necrosis, presents with pain in his left upper extremity and pain in his right lower extremity. Also some mild confusion while on pain meds. The patient found to be anemic with a hemoglobin of 8.7. We will recheck an H and H at 12:00 p.m., start on iron and also get stool Hemoccult. If his hemoglobin continues to drop, we may need to transfuse and/or consider possible scope and if Hemoccult blood is ADMIT: 01/01/2017 RM/LOC: 529 [facility] MR#: [id number] [address] [address] [place] [address] History and Physical SEX: M AGE: 61 : 1955 positive. We will transfuse if his hemoglobin drops below 8. Right lower extremity DVT, we will continue compression stockings. We will hold his Coumadin currently right now for possible bleed and also because his INR is elevated at 5.6. We will get a CTA to assess for PE. Left upper extremity, no DVT was visible on Doppler, but could be possible phlebitis, also could be a possible hematoma injury due to his recent fall against the wall. Cellulitis, we will continue antibiotics. Atrial fibrillation, continue his current home medications. Chronic obstructive pulmonary disease, we will schedule DuoNebs at this time, get him started back on normal schedule. Consider steroids at a later date if continues to be wheezy and if no improvement. I am also going to get a CT of his left upper extremity to assess for any possible bleeding. Also check CBC, BMP, and INR daily. Rowena Ch MD Resident / Matty Quintanilla MD / efrain JOB #: [id number] CC: Doroteo Quintanilla, Attending Physician Doroteo Quintanilla, Family Physician
[2017-01-10] MEDS ORDERED: COUMADIN5 MG PO (18:43)
[2017-01-10] MEDS ORDERED: COLACE-DPS100 MG PO ×2 (18:43→18:47)
[2017-01-10] MEDS ORDERED: ALLEGRA DPS180 MG PO (18:43)
[2017-01-10] MEDS ORDERED: FEOSOL-DPS325 MG PO (18:43)
[2017-01-10] MEDS ORDERED: AMBIEN DPS5 MG PO (18:43)
[2017-01-10] MEDS ORDERED: PROSCAR DPS5 MG PO (18:44)
[2017-01-10] MEDS ORDERED: SENOKOT S1 TAB PO (18:44)
[2017-01-10] MEDS ORDERED: PROTONIX40 MG PO (18:44)
[2017-01-10] MEDS ORDERED: FLOMAX DPS0.4 MG PO (18:44)
[2017-01-10] MEDS ORDERED: MIRALAX PACKET17 GM PO (18:44)
[2017-01-10] MEDS ORDERED: REGLAN DPS5 MG PO (18:44)
[2017-01-10] MEDS ORDERED: VIBRAMYCIN-DPS100 M2 PO (18:45)
[2017-01-10] MEDS ORDERED: TOPROL XL100 MG PO (18:45)
[2017-01-10] MEDS ORDERED: DULERA 200/58.8 GM IN (18:45)
[2017-01-10] MEDS ORDERED: MONTELUKAST SOD10 MG PO (18:45)
[2017-01-10] MEDS ORDERED: THERA1 EACH PO (18:45)
[2017-01-10] MEDS ORDERED: SPIRIVA18 MCG IH (18:46)
[2017-01-10] MEDS ORDERED: DUONEB DPS3 ML IH ×2 (18:46→18:49)
[2017-01-10] MEDS ORDERED: DURAGESIC1 EAC1 TP (18:47)
[2017-01-10] MEDS ORDERED: DULCOLAX-DPS5 MG PO (18:48)
[2017-01-10] MEDS ORDERED: ULTRAM DPS50 MG PO (18:48)
[2017-01-10] MEDS ORDERED: OXY IR DPS10 MG PO (18:48)
[2017-01-10] MEDS ORDERED: FLEXERIL-DPS10 MG PO (18:48)
[2017-01-10] MEDS ORDERED: XANAX DPS0.25 MG PO (18:49)
[2017-01-10] MEDS ORDERED: ZOFRAN4 MG PO (18:49)
[2017-01-10] MEDS ORDERED: PROVENTIL2.5 MG/3 M IH (18:49)
[2017-01-23] MEDS ORDERED: TYLENOL DPS325 MG PO (06:12)
[2017-01-23] MEDS ORDERED: MAG-OX400 MG PO (06:12)
[2017-01-23] MEDS ORDERED: POTASSIUM99 MG PO (06:12)
[2017-01-23] MEDS ORDERED: LASIX20 MG PO (06:13)
--- NOTE | 2017-02-24 19:05 | DS ---
ADMIT: 01/01/2017 RM/LOC: 529 [facility] MR#: [id number] [address] [address] [place] [address] General Discharge Summary SEX: M AGE: 61 : 1955 ADMISSION DATE: 01/01/2017 DISCHARGE DATE: 01/09/2017 INDICATION FOR HOSPITALIZATION: Jimmy is a 61-year-old white male well known to myself admitted to [facility] for left arm pain, confusion, and falls after recent right total hip for avascular necrosis by Dr. Matty Quintanilla. He additionally was noted to have some swelling, redness, and pain in his lower extremities. Please see his admission H and P for further details regarding his history of present illness, past medical history, physical exam, and assessment at time of hospitalization. HOSPITAL COURSE: On admission, his Coumadin was held. He was given pain medications, and his home medications were reviewed and continued. IV vancomycin and Zosyn were ordered for concerns of secondary infection. Blood was typed and crossed and held and 1 unit was transfused for anemia. Left upper extremity scan shows no deep venous thrombosis and large hematoma was noted on my assessment. Zosyn and vancomycin doses were adjusted by pharmacy on the . By ; vital signs were stable, he was afebrile. White count was normal. Hemoglobin was 10.8. Blood cultures were negative. CT shows subcutaneous fluid in the left arm consistent with hematoma. Venous Doppler had been negative with no occlusive thrombus noted in the right leg. His diagnoses were congestive heart failure, hematoma, occlusive thrombus in the right lower leg, and atrial fib. Hyponatremia, resolved. Physical and Occupational Therapy were ordered. Wound Care was involved. Ortho signed for followup of his right total hip. Ultimately on January 03, vital signs were stable. Hemoglobin was down to 7.2. Lasix dose was adjusted at 80 mg in the morning. Vancomycin was discontinued. Coumadin was held due to INR of 1.88 with his hematoma. He was started on Ancef and doxycycline, and his Zosyn was discontinued regarding the hematoma with early signs of infection in the arm. Over the next couple days, he was monitored. Labs were reviewed. Electrolytes were adjusted. On January 05; vital signs were stable. Blood cultures were negative. Renal ultrasounds on urinary retention with a complex cyst. Neurology was consulted. Garrett catheter was placed. Arrangements to get discharge placement for rehabilitation were made. Flomax was started for his urinary retention by Urology. Nephrology was involved. Speech Therapy was involved, did request for modified barium swallow. Coumadin was resumed at 5 mg a day on January 06. His Ancef was discontinued. Speech Therapy recommended thin liquids and mechanical soft diet. Elevate the head of the bed on their modified barium swallowing. Diuretic and blood pressure med adjustments were made on the . Coumadin was changed to 6 mg daily on the . FINAL DISCHARGE DIAGNOSES: Include: 1. Left arm hematoma. 2. Cellulitis and stasis dermatitis of the leg. 3. Status post right total hip arthroplasty. 4. Venous insufficiency. 5. Nonocclusive thrombus in the right lower extremity. 6. Atrial fibrillation. ADMIT: 01/01/2017 RM/LOC: 529 [facility] MR#: [id number] [address] [address] [place] [address] General Discharge Summary SEX: M AGE: 61 : 1955 7. Chronic obstructive pulmonary disease. 8. Congestive heart failure, acute on chronic. 9. Chronic kidney disease. 10.Benign prostatic hypertrophy with bladder outlet obstruction. 11.Sleep apnea. 12.Prior colon polyps with colitis. 13.Recent avascular necrosis of the right hip status post total hip. 14.Hyponatremia. 15.Hypokalemia. 16.Anemia. 17.Urinary retention with Garrett catheter placement. 18.Elevated INR. 19.Hypertension. LABORATORY AND X-RAY DATA: Include on January 09; white count of 7.0, hemoglobin 8.3, platelet count of 455,000. On January 04; white count of 10.0, hemoglobin 6.9 with platelet count of 508,000. On January 03; white count of 10.6 and hemoglobin 7.2. On January 01; white count of 10.5, hemoglobin 8.7, and platelet count of 506,000. INR on admission was 5.67 on January 01. On January 04; UA was normal. On January 09; sodium 136, potassium 3.4, BUN of 17, creatinine 1.3 with glucose 93. On January 01; sodium 128, potassium 3.6, BUN of 14, creatinine 1.0 with a glucose of 94. On January 04; B12 is 1039, folate is 14.5. Blood cultures showed no growth on admission. CAT scan of the left upper extremity shows diffuse subcutaneous infiltrate, also showed infection. Chest x-ray on January 06, showed COPD. Left upper extremity venous Doppler was normal. He has fatty infiltrate of the liver with right renal complex cyst and urinary retention on renal ultrasound on January 04. PROCEDURES: Include Coumadin cessation with re-coumadinization, medical management of left arm hematoma secondary to elevated INR, previous right total hip arthroplasty with physical and occupational therapy, IV antibiotics, nebulizers, urologic nephrology consultation. Please see his hospital record for the details. Doroteo Quintanilla MD/ efrain JOB #: [id number] CC: Doroteo Quintanilla MD, Attending Physician Doroteo Quintanilla MD, Family Physician
== END 2017-01-09 13:40 | DRG 299 ==
LOC: ER 05:01 → 5MS 06:49
PROVIDERS: ADMIT Family Medicine
DX: I82.411 Acute embolism and thrombosis of right femoral vein (principal); I50.33 Acute on chronic diastolic (congestive) heart failure; N17.9 Acute kidney failure, unspecified; L03.115 Cellulitis of right lower limb; E87.1 Hypo-osmolality and hyponatremia; L03.116 Cellulitis of left lower limb; N13.8 Other obstructive and reflux uropathy; S40.022A Contusion of left upper arm, initial encounter; E87.6 Hypokalemia; F32.9 Major depressive disorder, single episode, unspecified; M79.602 Pain in left arm; R35.0 Frequency of micturition; R33.8 Other retention of urine; N40.1 Benign prostatic hyperplasia with lower urinary tract symptoms; I48.91 Unspecified atrial fibrillation; F41.9 Anxiety disorder, unspecified; R41.0 Disorientation, unspecified; J44.9 Chronic obstructive pulmonary disease, unspecified; B19.20 Unspecified viral hepatitis C without hepatic coma; X58.XXXA Exposure to other specified factors, initial encounter; D64.9 Anemia, unspecified; W19.XXXA Unspecified fall, initial encounter; I87.2 Venous insufficiency (chronic) (peripheral); G47.33 Obstructive sleep apnea (adult) (pediatric); Z96.641 Presence of right artificial hip joint; Z79.01 Long term (current) use of anticoagulants; Z87.891 Personal history of nicotine dependence

== ENCOUNTER 2017-01-13 21:06 | Emergency (ER) | payer MEDICARE, SELFPAY ==
[~2017-01-13 21:06] MED LIST changes: +AMBIEN DPS5 MG PO; +COUMADIN5 MG PO; +DULERA 200/58.8 GM IN; +DUONEB DPS3 ML IH; +DURAGESIC1 EAC1 TP; +FEOSOL-DPS325 MG PO; +FLEXERIL-DPS10 MG PO; +FLOMAX DPS0.4 MG PO; +MIRALAX PACKET17 GM PO; +OXY IR DPS10 MG PO; +THERA1 EACH PO; +TOPROL XL100 MG PO; +VIBRAMYCIN-DPS100 M2 PO
--- NOTE | 2017-01-15 01:37 | ER ---
ADMIT: 01/13/2017 RM/LOC: ER [facility] MR#: [id number] [address] [address] [place] [address] Emergency Room Report SEX: M AGE: 61 : 1955 DATE: 01/13/2017 ADDENDUM: See T-sheet for complete H and P. A 61-year-old male, who was brought into the ER for concerns of some nausea and abdominal pain and not having a bowel movement in a couple of days. He did have a recent hospitalization with cellulitis and is on therapy for that. He is currently at the alf. On examination, his belly was soft. Bowel sounds are active. He had some very mild diffuse tenderness. He does have significant pedal edema in both lower extremities with some erythema, but this is not new for him as he has been treated for it. It does not appear to be any worse at this time per patient and on evaluation. While in the ER, he did get a CT abdomen and pelvis which showed nothing acute. His CBC was unremarkable. His chemistry showed his potassium just slightly low at 3.3 and his AST was 53. Lactic acid is 1.2. INR is 2.01. Vital signs are unremarkable. While in the ER, he did get some pain control for some chronic pain in his right hip which is also not new and he takes medications for. The patient is stable, will be discharged back to the nursing facility with a diagnosis of chronic right hip pain and chronic edema. Sid Koo MD/ efrain JOB #: [id number] CC: Sid Koo MD, Attending Physician
[2017-01-23] MEDS ORDERED: MAG-OX400 MG PO (06:12)
[2017-01-23] MEDS ORDERED: POTASSIUM99 MG PO (06:12)
[2017-01-23] MEDS ORDERED: TYLENOL DPS325 MG PO (06:12)
[2017-01-23] MEDS ORDERED: LASIX20 MG PO (06:13)
== END 2017-01-14 00:20 | disposition home or self-care (01) ==
LOC: ER 21:06
DX: G89.29 Other chronic pain (principal); M25.551 Pain in right hip; R60.0 Localized edema; I10 Essential (primary) hypertension; J44.9 Chronic obstructive pulmonary disease, unspecified; F41.9 Anxiety disorder, unspecified; Z88.8 Allergy status to other drugs, medicaments and biological substances; Z79.01 Long term (current) use of anticoagulants; Z79.899 Other long term (current) drug therapy

== ENCOUNTER 2017-01-17 14:56 | Inpatient (IN) | payer MEDICARE, OTHER ==
[~2017-01-17] VITALS: Ht 167.6 cm; Wt 95.5 kg
--- NOTE | ~2017-01-17 | ECH ---
Transthoracic Echocardiography Report (TTE) Demographics Patient Name JONNATHAN PRADO Date of Study 01/18/2017 Patient Number [id number] Visit Number [id number] Date of 1955 Room Number 401 Accession Number [id number] Gender Male Age 61 year(s) Referring Hollie Martines MD Sawsmith Perla Moran Physician Socorro Paul RDCS, MD Physician Interpreting Hollie Martines MD Circular Saw Operator Physician Supervising Ordering Physician Hollie Martines MD, MD/P Nurse Stress Pre Press Manager Conclusions Summary Technically adequate exam. The estimated left ventricular ejection fraction is 60-65%. Moderately dilated right ventricle with normal function. The left atrium is moderately dilated by LA volume index measurement. The right atrium is severely dilated. Mild tricuspid regurgitation by color Doppler. There is mild pulmonary hypertension. The pulmonary pressure (RVSP) is 38 mmHg. Procedure Type of Study TTE procedure:Echo Complete SF. Procedure Date Date: 01/18/2017 Start: 10:15 AM Technical Quality: Adequate visualization Indications:Congestive heart failure, Atrial fibrillation, edema and Coronary artery disease. Appropriate Use Criteria: 9 Height: 68 inches Weight: 252 pounds BSA: 2.25 m Rhythm: Atrial fibrillation HR: 105 bpm BP: 112/67 mmHg M-Mode/2D Measurements LV Diastolic Dimension: 5.16 cm LV Systolic Dimension: 3.72 cm LV Septum Diastolic: 0.81 cm LV PW Diastolic: 0.81 cm AO Root Dimension: 2.94 cm Cardiac Output: 7.02 l/min LA Dimension: 5.14 cm Cardiac Index: 3.12 l/min*m RV Diastolic Dimension: 3.88 cm LA volume index: 46 ml/m LVOT: 2.01 cm LVOT VTI: 21.08 cm RV Base: 5.2 cm LV Stroke volume: 66.85 ml RV Mid: 2.9 cm LV Stroke volume index: 29.71 ml/m TAPSE: 2.5 cm TDI-S': 12 cm/s Doppler Measurements AV Peak Velocity: 1.5 m/s MV Peak E-Wave: 1.07 m/s AV Peak Gradient: 9 mmHg AV Mean Gradient: 4.58 mmHg MV P1/2t: 66.5 msec LVOT Peak Velocity: 1.07 m/s AV Area (Continuity):3.04 cm MV Area (PHT): 3.31 cm TR Velocity:2.75 m/s PV Peak Velocity: 0.86 m/s TR Gradient:30.25 mmHg PV Peak Gradient: 2.97 mmHg Estimated RAP:8 mmHg Estimated PASP: 38.25 mmHg Estimated RVSP: 38 mmHg E' Septal Velocity: 0.16 m/s RA Area: 33.66 cm Findings Left Ventricle Normal left ventricle size and function. Diastolic function indeterminate due to patient's arrhythmia. Right Ventricle Moderately dilated right ventricle with normal function. Left Atrium The left atrium is moderately dilated by LA volume index measurement. Right Atrium The right atrium is severely dilated. Mitral Valve Normal mitral valve structure and function. Mild mitral regurgitation by color Doppler. Aortic Valve Normal aortic valve structure and function. Tricuspid Valve Normal tricuspid valve structure and function. Mild tricuspid regurgitation by color Doppler. There is mild pulmonary hypertension. The pulmonary pressure (RVSP) is 38 mmHg. Pulmonic Valve Normal pulmonic valve structure and function. Pericardial Effusion No evidence of pericardial effusion. Miscellaneous Visualized portions of the aortic root and ascending aorta appear normal in size. Pleural Effusion No evidence of pleural effusion. Signature
--- NOTE | 2017-01-18 15:33 | CO ---
ADMIT: 01/17/2017 RM/LOC: 401 [facility] MR#: [id number] [address] [address] [place] [address] Consultation SEX: M AGE: 61 : 1955 DATE OF CONSULTATION: 01/17/2017 ATTENDING PHYSICIAN: Doroteo Quintanilla CONSULTING PHYSICIAN: Fernanda Browne MD REASON FOR CONSULTATION: Edema. HISTORY OF PRESENT ILLNESS: Mr. Prado is a pleasant patient well known to me, 61 years old, whom we are asked to consult at the request of Dr. Quintanilla for the problem of edema. He comes in today for routine clinic check from a [facility] stay post total hip arthroplasty complaining about shortness of breath, notes that he is edematous. It is noted that he was not discharged from the hospital post recent arthroplasty on his Lasix. Arthroplasty was done December 20, and he is about 25 pounds greater in weight than he was at that time. He is denying any chest pain or tightness. No fevers, chills, cough, or cold symptoms. PAST MEDICAL HISTORY: 1. Permanent atrial fibrillation. 2. History of nonobstructive coronary artery disease via catheterization in 2000. 3. Recent total hip arthroplasty. 4. Osteoarthritis. 5. History of hepatitis B. MEDICATION LIST: At the [facility] include: 1. Albuterol as directed. 2. Jewels 180 mg a day. 3. Ambien 10 at bedtime. 4. Cepacol lozenges. 5. Colace as directed. 6. Coumadin as directed. 7. Dulcolax as directed. 8. Formoterol as directed. 9. Flexeril 10 mg every 8 hours as needed for pain. 10.Flomax 0.4 mg at bedtime. 11.Iron 325 twice a day. 12.Oxycodone 10 mg every 4 hours as needed for pain. 13.Proscar. 14.Finasteride 5 mg at bedtime. 15.Protonix 40 mg once a day. 16.Reglan 5 mg at bedtime. 17.Senna as directed. 18.Toprol-XL 100 mg 2 times a day. 19.Xanax 0.25 mg every 8 hours as needed for anxiety. ALLERGIES: NONE KNOWN. ADMIT: 01/17/2017 RM/LOC: 401 [facility] MR#: [id number] [address] [address] [place] [address] Consultation SEX: M AGE: 61 : 1955 FAMILY HISTORY: Father with coronary artery disease bypassed. Mother with an DC. SOCIAL HISTORY: Former smoker. Three children. He is retired. REVIEW OF SYSTEMS: A full 12-point review of systems was obtained and deemed to be negative except for the pertinently dictated positives in the HPI. PHYSICAL EXAMINATION: VITAL SIGNS: Blood pressure is 130/81 with a pulse in the upper 90s, temp 100. His weight is 256 pounds. GENERAL: He is a pleasant well-nourished, well-developed white male, in no acute distress. Oriented x3. NECK: Brisk carotid upstrokes with minimal JVD. LUNGS: Clear. HEART: Irregular. ABDOMEN: Soft. EXTREMITIES: No cyanosis or clubbing. Edema is 2+ bilaterally to the thigh. ABDOMEN: Soft, nontender, and nondistended. MUSCULOSKELETAL: Normal. NEUROLOGIC: Normal. SKIN: Bruni, warm, and dry. LABORATORY AND X-RAY DATA: Laboratory and ancillary data is currently pending. ASSESSMENT AND PLAN: 1. Acute diastolic heart failure. 2. Chronic atrial fibrillation. 3. Status post right total hip arthroplasty on December 20. 4. Nonobstructive coronary artery disease. Agree with aggressive diuresis. His dry weight is around 220 and 225 pounds. Monitor his electrolytes closely. We will check echo and put him on a low-sodium diet with fluid restriction. Fernanda Browne MD/ efrain JOB #: [id number] CC: Doroteo Quintanilla, Attending Physician Doroteo Quintanilla, Family Physician
[2017-01-23] MEDS ORDERED: TYLENOL DPS325 MG PO (06:12)
[2017-01-23] MEDS ORDERED: POTASSIUM99 MG PO (06:12)
[2017-01-23] MEDS ORDERED: MAG-OX400 MG PO (06:12)
[2017-01-23] MEDS ORDERED: LASIX20 MG PO (06:13)
--- NOTE | 2017-01-26 08:09 | HP ---
ADMIT: 01/17/2017 RM/LOC: 401 [facility] MR#: [id number] [address] [address] [place] [address] History and Physical SEX: M AGE: 61 : 1955 DATE OF SERVICE: CHIEF COMPLAINT: Shortness of breath and swelling of his legs. HISTORY OF PRESENT ILLNESS: Jimmy is a 61-year-old white male, well known to myself. He is admitted to [facility] the [facility]. He states he has been at [facility] now for about two weeks after discharge and has continued to retain fluid and gain weight. He states he had previously been on Lasix and they have been not giving him that for the last couple of weeks. He states that the swelling in his legs gotten to the point he can hardly get up and get around, and he is getting more short of breath. Denies any chest pain, palpitations, diaphoresis, fever, chills, or other concerns. Note, he was recently seen in the ER at [facility] on the 01/[address] Koo and concerns with swelling were noted, concern of his recent cellulitis. CAT scan of the abdomen and pelvis were obtained and ultimately was transferred back to the [facility] in relatively stable condition. PAST MEDICAL HISTORY: Well documented and includes two right and one prior left rotator cuff repair, a recent right total hip arthroplasty for avascular necrosis of the right femoral head. He has had open reduction and internal fixation of leg fractures, hernia surgery, carpal tunnel surgery, bilateral thumb tendon transfers, nose surgery. Illnesses include COPD, atrial fibrillation, benign prostatic hypertrophy, prior colitis, colon polyps, venous insufficiency, sleep apnea, and chronic congestive heart failure with venous insufficiency and edema. MEDICATIONS: On admission are listed in his chart. I did not currently have the med list for dictation. I believe his prior medications include: 1. Coumadin. 2. Metoprolol. 3. Omeprazole. 4. Finasteride. 5. He was on Lasix 80 mg in the morning, and that is been inadvertently held at the home for 2 weeks. 6. Potassium 20 mEq t.i.d. 7. ProAir two puffs q.i.d. 8. Symbicort 160/4.5 b.i.d. 9. Tudorza once daily. 10.Albuterol p.r.n. 11.Ambien CR 12.5 at bedtime. 12.Docusate 100 mg p.r.n. along with 180 mg Jewels. 13.Montelukast 10 mg. 14.Reglan 5 mg before meals, at bedtime. 15.P.r.n. alprazolam. Will need to call and confirm med list. ALLERGIES: NONE. ADMIT: 01/17/2017 RM/LOC: 401 [facility] MR#: [id number] [address] [place] [id number] [place] [address] History and Physical SEX: M AGE: 61 : 1955 SOCIAL HISTORY: That of a 61-year-old white male. He is on disability due to his back and shoulders. He is a biker and is a prior smoker, in remission with end-stage COPD and he used to drink excessively and frequently. FAMILY HISTORY: Noncontributory. REVIEW OF SYSTEMS: Remarkable for his arthritis in the shoulders with prior rotator cuff repairs, recent right total hip, recent pelvic fracture, plantar fasciitis, fallen arches in his left foot along with his end-stage COPD, swelling of his lower extremities, and diffuse arthritis. Remainder of review of system is negative other than his chronic indwelling Garrett which has been followed by Urology. PHYSICAL EXAMINATION: VITAL SIGNS: Include blood pressure 146/80 with a pulse 115. Weight of 146 pounds, sats were good on room air, currently 96% with a height of 68 inches and temperature 98.2. GENERAL: He is alert, in no acute distress. Sitting in a wheelchair. HEENT: Pupils are reactive. TMs normal. Throat unremarkable with dentures. NECK: Without nodes or masses. HEART: Regular with borderline tachycardia with a rate just over 100. LUNGS: Fairly clear with decreased breath sounds in the bases. ABDOMEN: Obese, he has 3+ edema to his hips. EXTREMITIES: He has some mild rubor in his lower extremities. No clubbing or cyanosis. NEURO: Exam reveals no gross focal deficit. ASSESSMENT: 1. Congestive heart failure. 2. Venous insufficiency. 3. Atrial fibrillation. 4. End-stage chronic obstructive pulmonary disease. 5. Nonobstructive sleep apnea. 6. Colon polyps. 7. Eczema. 8. Tobacco dependency, in remission. ADMIT: 01/17/2017 RM/LOC: 401 [facility] MR#: [id number] [address] [place] [id number] [place] [address] History and Physical SEX: M AGE: 61 : 1955 9. Recent right total hip. 10.Previous bilateral rotator cuff surgery. 11.Pes planus with plantar fasciitis and fallen arches. 12.Diffuse degenerative arthritis. PLAN: INR today is over 5. We will hold his Coumadin, given vitamin K, place him on telemetry. Discussed that likely his fluid retention and CHF as a result of his inadvertent cessation of his Lasix at home. We will start him on IV Lasix. Case was discussed with Dr. Browne of Cardiology and a formal [facility] consult is obtained. Routine labs and x-rays were obtained. We will proceed with further evaluation and management based on course during hospitalization. Doroteo Quintanilla MD/ efrain JOB #: [id number] CC: Doroteo Quintanilla, Attending Physician Doroteo Quintanilla, Family Physician
--- NOTE | 2017-03-13 08:31 | DS ---
ADMIT: 01/17/2017 RM/LOC: 401 [facility] MR#: [id number] 26[address] [facility] [address] [place] [id number] [place] [address] General Discharge Summary SEX: M AGE: 61 : 1955 ADMISSION DATE: 01/17/2017 DISCHARGE DATE: 01/22/2017 INDICATION FOR HOSPITALIZATION: Jimmy is a 62-year-old white male, well known to myself, admitted to [facility] through the [facility] after being [facility] for 2 weeks and being seen with increasing swelling after realized that his Lasix had been inadvertently discontinued. He developed significant swelling and ultimately had been seen in the ER and was sent home, who was admitted for further evaluation and treatment through the [facility] due to concerns for acute exacerbation of chronic congestive heart failure with fluid retention, edema, and further medical management. Please see his admission H and P for further details regarding his history of present illness, past medical history, physical exam, and assessment at the time of hospitalization. HOSPITAL COURSE: On admission, an echocardiogram, EKG, and some routine labs were obtained. He was placed on a low-sodium diet. Fluid restriction was given. He was given magnesium intravenous and IV Lasix. His Coumadin was held and [facility] was formally consulted. By January 19, vital signs were stable. He was afebrile. He was still on 2 L. His weight was down 19 pounds since admission. His electrolytes had stabilized. INR was 2.32 and his fluid restriction was changed to 2500 mL, and he was allowed to shower. By January 20, his vital signs were stable. His weight was down to 211 which is down 35 pounds from admission. His Garrett was discontinued and an ultrasound for postvoid residual was ordered. Oral potassium adjustments were made. Arrangements for home oxygen discharge were made. On January 22, he was switched from IV to oral Lasix. He was discharged to home later that day on 2 L of oxygen with followup in the clinic. DISCHARGE MEDICATIONS: Discharge medications are listed on his discharge med list. Please see his discharge med list for further details per Dr. Weiss on January 22. LABORATORY AND X-RAY DATA DURING HOSPITALIZATION: Include on January 21; hemoglobin 9.5. January 17; white count 9.1, hemoglobin 9.1, platelet count of 456,000. INR on January 22 was 1.95. INR on January 17 4.26. On January 22; sodium is 137, potassium 3.5, BUN 13, creatinine 0.9 with glucose 96. On January 17; sodium 139, potassium 3.7, BUN of 7, creatinine 0.9, glucose 100, AST is 47, ALT is 31. Magnesium 1.0 on January 17 and 1.4 on January 18. TSH 0.983 on January 18. Chest x-ray shows no acute changes on January 17. FINAL DISCHARGE DIAGNOSES: Include: ADMIT: 01/17/2017 RM/LOC: 401 [facility] MR#: [id number] [address] [place] [phone] [place] [address] General Discharge Summary SEX: M AGE: 61 : 1955 1. Acute exacerbation of chronic systolic congestive heart failure. 2. Venous insufficiency. 3. Atrial fibrillation. 4. End-stage chronic obstructive pulmonary disease with oxygen dependency. 5. Nonobstructive sleep apnea. 6. Colon polyps. 7. Recent right total hip arthroplasty, previous bilateral rotator cuff repairs of plantar fasciitis and diffuse degenerative arthritis. PROCEDURES: Include IV diuresis, fluid and electrolyte replacement therapy. Magnesium replacement for hypomagnesemia and Coumadin adjustments for anticoagulation. Please see hospital records for further details. Doroteo Quintanilla MD/ efrain JOB #: [id number] CC: Doroteo Quintanilla MD, Attending Physician Doroteo Quintanilla MD, Family Physician
== END 2017-01-22 10:00 | disposition home health service (06) | DRG 293 ==
LOC: 4PCU 14:56
PROVIDERS: ADMIT Family Medicine
DX: I11.0 Hypertensive heart disease with heart failure (principal); Z99.81 Dependence on supplemental oxygen; Z79.01 Long term (current) use of anticoagulants; E83.42 Hypomagnesemia; I50.33 Acute on chronic diastolic (congestive) heart failure; J44.9 Chronic obstructive pulmonary disease, unspecified; I87.2 Venous insufficiency (chronic) (peripheral); G47.30 Sleep apnea, unspecified; M19.012 Primary osteoarthritis, left shoulder; M19.011 Primary osteoarthritis, right shoulder; R09.02 Hypoxemia; R33.8 Other retention of urine; N40.1 Benign prostatic hyperplasia with lower urinary tract symptoms; D64.9 Anemia, unspecified; M72.2 Plantar fascial fibromatosis; L30.9 Dermatitis, unspecified; M15.9 Polyosteoarthritis, unspecified; I48.2 Chronic atrial fibrillation; I25.10 Atherosclerotic heart disease of native coronary artery without angina pectoris; Z82.49 Family history of ischemic heart disease and other diseases of the circulatory system; Z87.891 Personal history of nicotine dependence; Z96.641 Presence of right artificial hip joint; Z86.19 Personal history of other infectious and parasitic diseases